=== PATIENT | male | born 1970 | race Two or more races ===

== ENCOUNTER 2021-07-25 08:33 | Emergency (ER) | payer SELFPAY ==
[~2021-07-25] VITALS: Ht 170.2 cm; Wt 70.3 kg
[2021-07-25 08:58] VITALS: BP 124/97
[2021-07-25] MEDS ORDERED: ACETAMINOPHEN 500 MG TAB PO ONE (09:15)
== END 2021-07-25 09:30 | disposition home or self-care (01) ==
LOC: ER 08:33 → EDBD 08:33 → ER 09:27
DX: S39.012A Strain of muscle, fascia and tendon of lower back, initial encounter (principal); E11.9 Type 2 diabetes mellitus without complications; V43.52XA Car driver injured in collision with other type car in traffic accident, initial encounter; Y93.89 Activity, other specified; Y92.410 Unspecified street and highway as the place of occurrence of the external cause; Y99.8 Other external cause status
CPT/HCPCS: 72100